=== PATIENT | male | born 1950 | race African-American/Black ===

== ENCOUNTER 2018-05-12 21:42 | Emergency (ER) | payer MEDICARE, MEDICAID ==
[~2018-05-12] VITALS: Ht 180.3 cm; Wt 104.0 kg
[~2018-05-12 21:42] MED LIST: AMLO5TAB4 PO; ASPI-1159 PO; ATOR20TA; CARV25TA47 PO; CLOP75TA33; FLUT1DIS3 IH; FURO-151 PO; HYDR-4135 PO; ISOS120T PO; KDUR20 PO; LEVITRA; LOSA100T14 PO; TERA5CAP4
[2018-05-13] MEDS ORDERED: CLONIDINE 0.3MG TABLET PO SCH (00:45)
[2018-05-13 01:31] LABS: CHLORIDE 100 mEq/L (98-107)
[2018-05-13 02:31] VITALS: BP 167/74
== END 2018-05-13 02:31 | disposition home or self-care (01) ==
LOC: ER 21:42
DX: I10 Essential (primary) hypertension (principal); T88.7XXA Unspecified adverse effect of drug or medicament, initial encounter; F11.23 Opioid dependence with withdrawal; T40.2X5A Adverse effect of other opioids, initial encounter; Y92.89 Other specified places as the place of occurrence of the external cause; E11.9 Type 2 diabetes mellitus without complications
CPT/HCPCS: 36415; 80048; 93005; 99284

== ENCOUNTER 2018-06-24 22:19 | Emergency (ER) | payer MEDICARE, MEDICAID ==
[~2018-06-24] VITALS: Ht 185.4 cm; Wt 109.0 kg
[2018-06-25] MEDS ORDERED: SODIUM CHLORIDE 0.9% 1,000 ML IV ONE (00:17)
[2018-06-25 00:33] LABS: BASOPHILS % 0.5 % (0.0-2.0); EOSINOPHILS % 0.9 % (0.0-5.0); HEMATOCRIT. 36.7 % (42.0-52.0); HEMOGLOBIN. 12.5 g/dL (14.0-18.0); LYMPHOCYTES % 35.7 % (20.0-50.0); MEAN CORPUSCULAR HEMOGLOBIN 29.4 pg (28.0-32.0); MEAN CORPUSCULAR VOLUME 86.4 fL (80.0-94.0); MEAN PLATELET VOLUME 8.5 fl (7.4-10.4); MONOCYTES % 8.3 % (2.0-8.0); NEUTROPHILS % 54.6 % (40.0-76.0); PLATELET 202 x1000/uL (130-400); RED BLOOD CELL COUNT 4.24 mill/uL (4.7-6.1)
[2018-06-25 00:36] LABS: CHLORIDE 101 mEq/L (98-107)
[2018-06-25 00:51] LABS: CLARITY URINE CLEAR (CLEAR); COLOR URINE YELLOW (YELLOW); KETONES URINE NEGATIVE (NEGATIVE); LEUKOCYTE ESTERASE URINE NEGATIVE (NEGATIVE); NITRITE URINE NEGATIVE (NEGATIVE); OCCULT BLOOD URINE NEGATIVE (NEGATIVE); PROTEIN URINE NEGATIVE (NEGATIVE); SPECIFIC GRAVITY URINE 1.011 (1.005-1.030); UROBILINOGEN URINE 0.2 E.U./dL (0.2-1.0)
[2018-06-25] MEDS ORDERED: HYDROCODONE/ACETAMINOPHEN 5/325MG TABLET PO ONE (01:45)
[2018-06-25] MEDS ORDERED: POTASSIUM CHLORIDE 20MEQ TABLET SR PO ONE (04:45)
[2018-06-25 05:00] VITALS: BP 167/72
== END 2018-06-25 06:36 | disposition home or self-care (01) ==
LOC: ER 22:19
DX: R42 Dizziness and giddiness (principal); E87.6 Hypokalemia; I11.0 Hypertensive heart disease with heart failure; I50.9 Heart failure, unspecified; Z79.82 Long term (current) use of aspirin; Z79.899 Other long term (current) drug therapy
CPT/HCPCS: 36415; 70450; 80053; 81003; 84484; 85025; 93005; 96360; 99284; J7030

== ENCOUNTER 2018-11-08 13:33 | Inpatient (IN) | payer MEDICARE, MEDICAID ==
[~2018-11-08] VITALS: Ht 193 cm; Wt 115.2 kg
[~2018-11-08 13:33] MED LIST changes: -ASPI-1159 PO; +ASPI-1393 PO; -LOSA100T14 PO; +LOSA100T32 PO
[2018-11-08] MEDS ORDERED: DOXYCYCLINE HYCLATE 100 MG/VIAL IV ONE (14:45)
[2018-11-08] MEDS ORDERED: SODIUM CHLORIDE 0.9% 1000ML BAG (SEPSIS BOLUS) IV ONE (14:45)
[2018-11-08 15:23] LABS: CHLORIDE 107 mEq/L (98-107); PROTHROMBIN TIME 10.7 sec (9.6-11.0)
[2018-11-08 15:25] LABS: BASOPHILS % 0.6 % (0.0-2.0); EOSINOPHILS % 2.5 % (0.0-5.0); HEMATOCRIT. 33.6 % (42.0-52.0); HEMOGLOBIN. 11.3 g/dL (14.0-18.0); LYMPHOCYTES % 25.8 % (20.0-50.0); MEAN CORPUSCULAR HEMOGLOBIN 29.5 pg (28.0-32.0); MEAN CORPUSCULAR VOLUME 87.8 fL (80.0-94.0); MEAN PLATELET VOLUME 9.5 fl (7.4-10.4); MONOCYTES % 8.3 % (2.0-8.0); NEUTROPHILS % 62.8 % (40.0-76.0); PLATELET 206 x1000/uL (130-400); RED BLOOD CELL COUNT 3.83 mill/uL (4.7-6.1); RED CELL DISTRIBUTION WIDTH 14.9 % (11.6-14.6)
[2018-11-08 15:27] LABS: ETHANOL BLOOD < 10 mg/dL
[2018-11-08] MEDS ORDERED: ALBUTEROL (0.083%) 2.5MG/3ML NEB HHN STA (17:23)
[2018-11-08] MEDS ORDERED: IPRATROPIUM BROMIDE (0.02%) 0.5MG/2.5ML NEB HHN STA (17:23)
[2018-11-08] MEDS ORDERED: METHYLPREDNISOLONE SOD SUCC 125 MG/2 ML VIAL IV STA (17:23)
[2018-11-08] MEDS ORDERED: DOXYCYCLINE 100MG in DEXTROSE 5% WATER 100ML IV NR (17:30)
[2018-11-08] MEDS ORDERED: CEFTRIAXONE 1 G PREMIX 50 ML IV NR (17:30)
[2018-11-08] MEDS ORDERED: HYDROCODONE/ACETAMINOPHEN 5/325MG TABLET PO ONE (17:45)
[2018-11-08] MEDS ORDERED: ONDANSETRON HCL 4MG/2ML INJ IV PRN (20:00)
[2018-11-08] MEDS ORDERED: ACETAMINOPHEN 325MG TABLET PO PRN (20:00)
[2018-11-08] MEDS ORDERED: MORPHINE SULFATE 2 MG/ML CPJ (NOT FOR IM USE) IV PRN (20:00)
[2018-11-08] MEDS ORDERED: DEXTROSE 50% WATER 50ML SYRINGE IV PRN (21:00)
[2018-11-08] MEDS: BLOOD SUGAR DIAGNOSTIC STRIP TEST SCH (21:46)
[2018-11-08] MEDS: INSULIN LISPRO 100 UNITS/ML SUBCUT SCH (22:07)
[2018-11-08] MEDS: HYDROCODONE/ACETAMINOPHEN 5/325MG TABLET PO PRN (23:32)
[2018-11-09] VITALS (8 sets, daily range): BP systolic 117–169; BP diastolic 54–93
[2018-11-09 00:26] LABS: CREATINE KINASE 107 IU/L (39-308)
[2018-11-09 00:27] LABS: CREATINE KINASE MB FRACTION 1.2 ng/mL (0.5-3.6)
[2018-11-09] MEDS: BLOOD SUGAR DIAGNOSTIC STRIP TEST SCH ×4 (06:36→20:53)
[2018-11-09 07:12] LABS: CREATINE KINASE 114 IU/L (39-308)
[2018-11-09 07:13] LABS: CREATINE KINASE MB FRACTION 1.1 ng/mL (0.5-3.6)
[2018-11-09] MEDS: FOLIC ACID 1MG TABLET PO SCH (08:44)
[2018-11-09] MEDS: ENOXAPARIN 40MG/0.4ML SYR SUBCUT SCH (08:45)
[2018-11-09] MEDS: THIAMINE HCL 100MG TABLET PO SCH (08:45)
[2018-11-09] MEDS: HYDROCODONE/ACETAMINOPHEN 5/325MG TABLET PO PRN ×2 (08:46→20:47)
[2018-11-09] MEDS: INSULIN LISPRO 100 UNITS/ML SUBCUT SCH ×4 (08:55→20:45)
[2018-11-09] MEDS ORDERED: ASPIRIN 81MG EC TABLET PO SCH (09:00)
[2018-11-09] MEDS: LORAZEPAM 2MG/ML CPJ IV PRN ×2 (10:38→22:03)
[2018-11-09] MEDS: LOSARTAN POTASSIUM 50 MG TABLET PO SCH (13:25)
[2018-11-09] MEDS ORDERED: METHYLPREDNISOLONE SOD SUCC 40 MG/ML VIAL IV SCH (15:45)
[2018-11-09] MEDS ORDERED: RACEPINEPHRINE 2.25% 0.5ML NEB VIAL HHN PRN (15:45)
[2018-11-09] MEDS: MONTELUKAST SODIUM 10MG TABLET PO SCH (17:48)
[2018-11-09 17:57] LABS: CLARITY URINE CLEAR (CLEAR); COLOR URINE YELLOW (YELLOW); KETONES URINE TRACE (NEGATIVE); LEUKOCYTE ESTERASE URINE NEGATIVE (NEGATIVE); NITRITE URINE NEGATIVE (NEGATIVE); OCCULT BLOOD URINE NEGATIVE (NEGATIVE); PROTEIN URINE TRACE (NEGATIVE); SPECIFIC GRAVITY URINE 1.025 (1.005-1.030)
[2018-11-09 18:21] LABS: *AMPHETAMINES SCREEN URINE NEGATIVE (NEGATIVE); *BARBITURATES SCREEN URINE NEGATIVE (NEGATIVE); *BENZODIAZEPINES SCREEN URINE PRESUMTIVE POSITIVE (NEGATIVE); *COCAINE SCREEN URINE NEGATIVE (NEGATIVE); CANNABINOID URINE SCREEN NEGATIVE (NEGATIVE); PHENCYCLIDINE URINE SCREEN NEGATIVE (NEGATIVE)
[2018-11-09 18:22] LABS: METHADONE URINE SCREEN NEGATIVE (NEGATIVE); OPIATES URINE SCREEN PRESUMTIVE POSITIVE (NEGATIVE)
[2018-11-09] MEDS: GUAIFENESIN 600MG ER TABLET PO SCH (20:47)
[2018-11-09] MEDS: LORATADINE 10MG TABLET PO SCH (20:47)
[2018-11-09] MEDS: ATORVASTATIN CALCIUM 20MG TABLET PO SCH (20:48)
[2018-11-09] MEDS: FAMOTIDINE 20MG/2ML VIAL IV SCH (20:48)
[2018-11-09] MEDS: IPRATROPIUM/ALBUTEROL 0.5-3(2.5)MG/3ML NEB NEB PRN (20:51)
[2018-11-09] MEDS ORDERED: AMLODIPINE 5MG TABLET PO SCH (21:00)
[2018-11-09] MEDS ORDERED: AMOXICILLIN/POTASSIUM CLAVULANATE 875/125MG TAB PO SCH (21:00)
[2018-11-09] MEDS: METHYLPREDNISOLONE SOD SUCC 125 MG/2 ML VIAL IV SCH (22:03)
[2018-11-09] MEDS: FLUTICASONE PROPIONATE 50MCG/SPRAY BOTTLE BOTHNSTRLS SCH (22:03)
[2018-11-10] VITALS (11 sets, daily range): BP systolic 127–202; BP diastolic 78–94
[2018-11-10] MEDS: CEFTRIAXONE 1 G PREMIX 50 ML IV SCH ×2 (00:26→22:34)
[2018-11-10] MEDS: AZITHROMYCIN 500 MG in DEXT 5% WATER 250 ML IV SCH ×2 (01:11→22:50)
[2018-11-10] MEDS: HYDROCODONE/ACETAMINOPHEN 5/325MG TABLET PO PRN ×3 (02:09→21:24)
[2018-11-10] MEDS: LORAZEPAM 2MG/ML CPJ IV PRN ×3 (02:23→23:37)
[2018-11-10] MEDS: METHYLPREDNISOLONE SOD SUCC 125 MG/2 ML VIAL IV SCH ×3 (05:45→21:26)
[2018-11-10 06:48] LABS: BASOPHILS % 0.1 % (0.0-2.0); HEMATOCRIT. 37.6 % (42.0-52.0); HEMOGLOBIN. 12.6 g/dL (14.0-18.0); LYMPHOCYTES % 11.2 % (20.0-50.0); MEAN CORPUSCULAR HEMOGLOBIN 29.6 pg (28.0-32.0); MEAN CORPUSCULAR VOLUME 87.8 fL (80.0-94.0); MEAN PLATELET VOLUME 9.8 fl (7.4-10.4); MONOCYTES % 2.6 % (2.0-8.0); NEUTROPHILS % 86.1 % (40.0-76.0); PLATELET 258 x1000/uL (130-400); RED BLOOD CELL COUNT 4.28 mill/uL (4.7-6.1); RED CELL DISTRIBUTION WIDTH 14.7 % (11.6-14.6)
[2018-11-10] MEDS: BLOOD SUGAR DIAGNOSTIC STRIP TEST SCH ×4 (06:52→21:26)
[2018-11-10 06:58] LABS: CHLORIDE 108 mEq/L (98-107)
[2018-11-10 07:09] LABS: LDL CHOLESTEROL 129 mg/dL (5-100)
[2018-11-10 07:10] LABS: PHOSPHORUS 2.2 mg/dL (2.5-4.9)
[2018-11-10 07:11] LABS: HDL CHOLESTEROL 50 mg/dL (40-59)
[2018-11-10] MEDS: THIAMINE HCL 100MG TABLET PO SCH (08:52)
[2018-11-10] MEDS: GUAIFENESIN 600MG ER TABLET PO SCH ×2 (08:52→21:25)
[2018-11-10] MEDS: FAMOTIDINE 20MG/2ML VIAL IV SCH ×2 (08:52→21:21)
[2018-11-10] MEDS: ENOXAPARIN 40MG/0.4ML SYR SUBCUT SCH (08:52)
[2018-11-10] MEDS: FOLIC ACID 1MG TABLET PO SCH (08:52)
[2018-11-10] MEDS: INSULIN LISPRO 100 UNITS/ML SUBCUT SCH ×4 (08:54→21:21)
[2018-11-10] MEDS: LOSARTAN POTASSIUM 50 MG TABLET PO SCH (09:00)
[2018-11-10] MEDS: FLUTICASONE PROPIONATE 50MCG/SPRAY BOTTLE BOTHNSTRLS SCH ×2 (09:00→21:00)
[2018-11-10 09:25] LABS: T4 FREE 1.12 ng/dL (0.76-1.46)
[2018-11-10] MEDS: HYDRALAZINE HCL 25MG TABLET PO SCH ×2 (14:43→21:25)
[2018-11-10] MEDS: MONTELUKAST SODIUM 10MG TABLET PO SCH (17:54)
[2018-11-10] MEDS: AMLODIPINE 5MG TABLET PO SCH (21:25)
[2018-11-10] MEDS: ATORVASTATIN CALCIUM 20MG TABLET PO SCH (21:26)
[2018-11-10] MEDS: LORATADINE 10MG TABLET PO SCH (21:27)
[2018-11-11 00:47] VITALS: BP 201/91
[2018-11-11 04:00] VITALS: BP 162/65
[2018-11-11] MEDS ORDERED: CLONIDINE 0.1MG TABLET PO PRN (04:15)
[2018-11-11] MEDS: METHYLPREDNISOLONE SOD SUCC 125 MG/2 ML VIAL IV SCH ×2 (05:25→13:21)
[2018-11-11] MEDS: HYDRALAZINE HCL 50MG TABLET PO SCH ×3 (05:27→21:19)
[2018-11-11] MEDS: HYDROCODONE/ACETAMINOPHEN 5/325MG TABLET PO PRN ×3 (05:28→20:36)
[2018-11-11] MEDS: BLOOD SUGAR DIAGNOSTIC STRIP TEST SCH ×4 (07:02→21:00)
[2018-11-11] MEDS: INSULIN LISPRO 100 UNITS/ML SUBCUT SCH ×4 (07:50→22:24)
[2018-11-11] MEDS: IPRATROPIUM/ALBUTEROL 0.5-3(2.5)MG/3ML NEB NEB PRN (08:56)
[2018-11-11] MEDS: FLUTICASONE PROPIONATE 50MCG/SPRAY BOTTLE BOTHNSTRLS SCH ×2 (09:01→21:13)
[2018-11-11] MEDS: GUAIFENESIN 600MG ER TABLET PO SCH ×2 (09:01→20:37)
[2018-11-11] MEDS: FAMOTIDINE 20MG/2ML VIAL IV SCH ×2 (09:01→20:38)
[2018-11-11] MEDS: FOLIC ACID 1MG TABLET PO SCH (09:01)
[2018-11-11] MEDS: AMLODIPINE 5MG TABLET PO SCH (09:02)
[2018-11-11] MEDS: LOSARTAN POTASSIUM 50 MG TABLET PO SCH (09:02)
[2018-11-11] MEDS: THIAMINE HCL 100MG TABLET PO SCH (09:02)
[2018-11-11] MEDS: ENOXAPARIN 40MG/0.4ML SYR SUBCUT SCH (09:05)
[2018-11-11] MEDS: LORAZEPAM 2MG/ML CPJ IV PRN ×2 (10:39→22:24)
[2018-11-11] MEDS: MIDODRINE HCL 2.5MG TABLET PO SCH ×2 (14:00→21:19)
[2018-11-11 16:00] VITALS: BP_SYST 138; BP_SYST 158; BP_SYST 180; BP_DIAS 84; BP_DIAS 90; BP_DIAS 91
[2018-11-11] MEDS: METHYLPREDNISOLONE SOD SUCC 40 MG/ML VIAL IV SCH (17:30)
[2018-11-11] MEDS: MONTELUKAST SODIUM 10MG TABLET PO SCH (17:30)
[2018-11-11 20:00] VITALS: BP_SYST 149; BP_SYST 175; BP_SYST 194; BP_DIAS 93; BP_DIAS 94; BP_DIAS 97
[2018-11-11] MEDS: ATORVASTATIN CALCIUM 20MG TABLET PO SCH (20:37)
[2018-11-11] MEDS: LORATADINE 10MG TABLET PO SCH (20:38)
[2018-11-11] MEDS: ENOXAPARIN 30MG/0.3ML SYR SUBCUT SCH (20:40)
[2018-11-11] MEDS: AZITHROMYCIN 500 MG in DEXT 5% WATER 250 ML IV SCH (22:25)
[2018-11-11] MEDS: CEFTRIAXONE 1 G PREMIX 50 ML IV SCH (22:25)
[2018-11-12] VITALS: BP 157/87
[2018-11-12 04:00] VITALS: BP 163/75
[2018-11-12] MEDS: BLOOD SUGAR DIAGNOSTIC STRIP TEST SCH ×4 (06:26→21:56)
[2018-11-12] MEDS: MIDODRINE HCL 2.5MG TABLET PO SCH ×3 (06:31→21:42)
[2018-11-12] MEDS: HYDRALAZINE HCL 50MG TABLET PO SCH ×3 (06:31→21:42)
[2018-11-12 08:00] VITALS: BP_SYST 126; BP_SYST 135; BP_SYST 181; BP_DIAS 83; BP_DIAS 87; BP_DIAS 93
[2018-11-12 08:16] LABS: HEMATOCRIT. 39.2 % (42.0-52.0); HEMOGLOBIN. 13.6 g/dL (14.0-18.0); MEAN CORPUSCULAR HEMOGLOBIN 30.1 pg (28.0-32.0); MEAN CORPUSCULAR VOLUME 86.7 fL (80.0-94.0); MEAN PLATELET VOLUME 9.8 fl (7.4-10.4); PLATELET 301 x1000/uL (130-400); RED BLOOD CELL COUNT 4.52 mill/uL (4.7-6.1); RED CELL DISTRIBUTION WIDTH 14.6 % (11.6-14.6)
[2018-11-12 08:49] LABS: CHLORIDE 106 mEq/L (98-107)
[2018-11-12] MEDS: FLUTICASONE PROPIONATE 50MCG/SPRAY BOTTLE BOTHNSTRLS SCH (09:00)
[2018-11-12] MEDS ORDERED: NIFEDIPINE XL 60MG TAB PO SCH (09:00)
[2018-11-12] MEDS: FAMOTIDINE 20MG/2ML VIAL IV SCH ×2 (09:33→21:43)
[2018-11-12] MEDS: THIAMINE HCL 100MG TABLET PO SCH (09:34)
[2018-11-12] MEDS: GUAIFENESIN 600MG ER TABLET PO SCH ×2 (09:34→21:42)
[2018-11-12] MEDS: FOLIC ACID 1MG TABLET PO SCH (09:34)
[2018-11-12] MEDS: METHYLPREDNISOLONE SOD SUCC 40 MG/ML VIAL IV SCH (09:34)
[2018-11-12] MEDS: ENOXAPARIN 30MG/0.3ML SYR SUBCUT SCH ×2 (09:35→21:49)
[2018-11-12] MEDS: LOSARTAN POTASSIUM 50 MG TABLET PO SCH ×2 (09:35→17:27)
[2018-11-12] MEDS: HYDROCODONE/ACETAMINOPHEN 5/325MG TABLET PO PRN ×2 (09:36→21:43)
[2018-11-12] MEDS: INSULIN LISPRO 100 UNITS/ML SUBCUT SCH ×4 (09:45→22:36)
[2018-11-12] MEDS: LORAZEPAM 2MG/ML CPJ IV PRN (11:45)
[2018-11-12 12:00] VITALS: BP 160/90
[2018-11-12 16:00] VITALS: BP 161/84
[2018-11-12] MEDS: MONTELUKAST SODIUM 10MG TABLET PO SCH (17:27)
[2018-11-12 20:00] VITALS: BP_SYST 129; BP_SYST 145; BP_SYST 156; BP_DIAS 86; BP_DIAS 91; BP_DIAS 94
[2018-11-12 21:12] LABS: PLATELET ESTIMATE NORMAL
[2018-11-12] MEDS: LORATADINE 10MG TABLET PO SCH (21:43)
[2018-11-12] MEDS: ATORVASTATIN CALCIUM 20MG TABLET PO SCH (21:43)
[2018-11-12] MEDS: NIFEDIPINE XL 60MG TAB PO SCH (21:45)
[2018-11-12] MEDS: CEFTRIAXONE 1 G PREMIX 50 ML IV SCH (22:38)
[2018-11-12] MEDS: AZITHROMYCIN 500 MG in DEXT 5% WATER 250 ML IV SCH (22:38)
[2018-11-13] VITALS (7 sets, daily range): BP systolic 112–154; BP diastolic 68–90
[2018-11-13] MEDS: MIDODRINE HCL 2.5MG TABLET PO SCH (06:11)
[2018-11-13] MEDS: HYDRALAZINE HCL 50MG TABLET PO SCH ×2 (06:12→13:59)
[2018-11-13 07:18] LABS: HEMATOCRIT. 40.3 % (42.0-52.0); HEMOGLOBIN. 13.8 g/dL (14.0-18.0); MEAN CORPUSCULAR HEMOGLOBIN 29.6 pg (28.0-32.0); MEAN CORPUSCULAR VOLUME 86.7 fL (80.0-94.0); PLATELET 301 x1000/uL (130-400); RED BLOOD CELL COUNT 4.65 mill/uL (4.7-6.1); RED CELL DISTRIBUTION WIDTH 14.8 % (11.6-14.6)
[2018-11-13 07:27] LABS: CHLORIDE 108 mEq/L (98-107)
[2018-11-13] MEDS: BLOOD SUGAR DIAGNOSTIC STRIP TEST SCH ×4 (08:19→20:56)
[2018-11-13] MEDS: INSULIN LISPRO 100 UNITS/ML SUBCUT SCH ×4 (08:20→20:56)
[2018-11-13] MEDS: FOLIC ACID 1MG TABLET PO SCH (08:21)
[2018-11-13] MEDS: LOSARTAN POTASSIUM 50 MG TABLET PO SCH ×2 (08:21→17:06)
[2018-11-13] MEDS: PREDNISONE 20MG TABLET PO SCH (08:21)
[2018-11-13] MEDS: GUAIFENESIN 600MG ER TABLET PO SCH ×2 (08:21→20:52)
[2018-11-13] MEDS: ENOXAPARIN 30MG/0.3ML SYR SUBCUT SCH ×2 (08:22→20:51)
[2018-11-13] MEDS: NIFEDIPINE XL 60MG TAB PO SCH ×2 (08:22→20:52)
[2018-11-13] MEDS: THIAMINE HCL 100MG TABLET PO SCH (08:22)
[2018-11-13] MEDS: FAMOTIDINE 20MG/2ML VIAL IV SCH ×2 (08:31→20:51)
[2018-11-13] MEDS: HYDROCODONE/ACETAMINOPHEN 5/325MG TABLET PO PRN ×2 (09:19→17:07)
[2018-11-13] MEDS ORDERED: POTASSIUM CHLORIDE 20MEQ TABLET SR PO NR (11:30)
[2018-11-13] MEDS: MIDODRINE HCL 5MG TABLET PO SCH (13:58)
[2018-11-13] MEDS: MONTELUKAST SODIUM 10MG TABLET PO SCH (17:06)
[2018-11-13] MEDS: LORATADINE 10MG TABLET PO SCH (20:51)
[2018-11-13] MEDS: ATORVASTATIN CALCIUM 20MG TABLET PO SCH (20:51)
[2018-11-13] MEDS: AZITHROMYCIN 500 MG TABLET PO SCH (20:52)
[2018-11-14] VITALS: BP 133/65
[2018-11-14] MEDS: HYDRALAZINE HCL 50MG TABLET PO SCH ×4 (00:43→22:07)
[2018-11-14] MEDS: CEFTRIAXONE 1 G PREMIX 50 ML IV SCH ×2 (00:43→22:13)
[2018-11-14] MEDS: MIDODRINE HCL 5MG TABLET PO SCH ×4 (00:43→21:04)
[2018-11-14 04:00] VITALS: BP 131/85
[2018-11-14 06:43] LABS: BASOPHILS % 0.2 % (0.0-2.0); EOSINOPHILS % 0.9 % (0.0-5.0); HEMATOCRIT. 40.6 % (42.0-52.0); HEMOGLOBIN. 13.9 g/dL (14.0-18.0); LYMPHOCYTES % 26.1 % (20.0-50.0); MEAN CORPUSCULAR HEMOGLOBIN 29.7 pg (28.0-32.0); MEAN CORPUSCULAR VOLUME 87.1 fL (80.0-94.0); MONOCYTES % 9.2 % (2.0-8.0); NEUTROPHILS % 63.6 % (40.0-76.0); PLATELET 304 x1000/uL (130-400); RED BLOOD CELL COUNT 4.67 mill/uL (4.7-6.1); RED CELL DISTRIBUTION WIDTH 14.8 % (11.6-14.6)
[2018-11-14 06:46] LABS: PLATELET ESTIMATE NORMAL
[2018-11-14 06:51] LABS: CHLORIDE 108 mEq/L (98-107)
[2018-11-14] MEDS: BLOOD SUGAR DIAGNOSTIC STRIP TEST SCH ×4 (07:20→21:06)
[2018-11-14] MEDS: INSULIN LISPRO 100 UNITS/ML SUBCUT SCH ×4 (07:50→21:02)
[2018-11-14 08:00] VITALS: BP_SYST 107; BP_SYST 116; BP_SYST 126; BP_SYST 135; BP_DIAS 67; BP_DIAS 71; BP_DIAS 79; BP_DIAS 94
[2018-11-14] MEDS: THIAMINE HCL 100MG TABLET PO SCH (08:27)
[2018-11-14] MEDS: PREDNISONE 20MG TABLET PO SCH (08:28)
[2018-11-14] MEDS: NIFEDIPINE XL 60MG TAB PO SCH ×2 (08:28→21:06)
[2018-11-14] MEDS: HYDROCODONE/ACETAMINOPHEN 5/325MG TABLET PO PRN ×2 (08:28→21:04)
[2018-11-14] MEDS: GUAIFENESIN 600MG ER TABLET PO SCH ×2 (08:29→21:04)
[2018-11-14] MEDS: ENOXAPARIN 30MG/0.3ML SYR SUBCUT SCH ×2 (08:29→21:06)
[2018-11-14] MEDS: LOSARTAN POTASSIUM 50 MG TABLET PO SCH ×2 (08:29→17:00)
[2018-11-14] MEDS: FOLIC ACID 1MG TABLET PO SCH (08:29)
[2018-11-14] MEDS: FAMOTIDINE 20MG/2ML VIAL IV SCH ×2 (08:29→21:04)
[2018-11-14 12:00] VITALS: BP 159/83
[2018-11-14] MEDS: VALACYCLOVIR HCL 500MG TABLET PO SCH (14:54)
[2018-11-14] MEDS ORDERED: VALA500T PO (14:58)
[2018-11-14 16:00] VITALS: BP 105/77
[2018-11-14] MEDS: MONTELUKAST SODIUM 10MG TABLET PO SCH (17:28)
[2018-11-14 20:00] VITALS: BP_SYST 131; BP_SYST 135; BP_SYST 156; BP_DIAS 67; BP_DIAS 69; BP_DIAS 89
[2018-11-14] MEDS: ATORVASTATIN CALCIUM 20MG TABLET PO SCH (21:04)
[2018-11-14] MEDS: LORATADINE 10MG TABLET PO SCH (21:04)
[2018-11-14] MEDS: AZITHROMYCIN 500 MG TABLET PO SCH (21:06)
[2018-11-14] MEDS: LORAZEPAM 2MG/ML CPJ IV PRN (22:08)
[2018-11-15] VITALS: BP 136/82
[2018-11-15] MEDS: ACETYLCYSTEINE 100MG/ML 10% VIAL 4ML INH SCH ×2 (00:28→15:49)
[2018-11-15] MEDS: HYDROCODONE/ACETAMINOPHEN 5/325MG TABLET PO PRN ×3 (02:43→21:27)
[2018-11-15] MEDS: LORAZEPAM 2MG/ML CPJ IV PRN (03:19)
[2018-11-15 04:00] VITALS: BP 150/81
[2018-11-15] MEDS: HYDRALAZINE HCL 50MG TABLET PO SCH ×3 (05:30→21:21)
[2018-11-15] MEDS: MIDODRINE HCL 5MG TABLET PO SCH ×3 (05:30→21:21)
[2018-11-15] MEDS: INSULIN LISPRO 100 UNITS/ML SUBCUT SCH ×4 (07:50→21:17)
[2018-11-15 08:00] VITALS: BP_SYST 107; BP_SYST 115; BP_SYST 154; BP_DIAS 67; BP_DIAS 69; BP_DIAS 74
[2018-11-15] MEDS: BLOOD SUGAR DIAGNOSTIC STRIP TEST SCH ×4 (08:07→21:23)
[2018-11-15] MEDS: ENOXAPARIN 30MG/0.3ML SYR SUBCUT SCH ×2 (09:05→21:23)
[2018-11-15] MEDS: FAMOTIDINE 20MG/2ML VIAL IV SCH ×2 (09:05→21:18)
[2018-11-15] MEDS: FOLIC ACID 1MG TABLET PO SCH (09:06)
[2018-11-15] MEDS: NIFEDIPINE XL 60MG TAB PO SCH ×2 (09:06→21:20)
[2018-11-15] MEDS: PREDNISONE 20MG TABLET PO SCH (09:06)
[2018-11-15] MEDS: GUAIFENESIN 600MG ER TABLET PO SCH ×2 (09:06→21:20)
[2018-11-15] MEDS: THIAMINE HCL 100MG TABLET PO SCH (09:06)
[2018-11-15] MEDS: LOSARTAN POTASSIUM 50 MG TABLET PO SCH ×2 (09:07→17:46)
[2018-11-15] MEDS: VALACYCLOVIR HCL 500MG TABLET PO SCH (09:33)
[2018-11-15 12:00] VITALS: BP 125/63
[2018-11-15] MEDS: DOCUSATE SODIUM 100MG CAPSULE PO SCH ×2 (13:05→17:46)
[2018-11-15 16:00] VITALS: BP 114/67
[2018-11-15] MEDS: MONTELUKAST SODIUM 10MG TABLET PO SCH (17:46)
[2018-11-15 20:00] VITALS: BP_SYST 116; BP_SYST 131; BP_SYST 134; BP_DIAS 73; BP_DIAS 74; BP_DIAS 83
[2018-11-15] MEDS: ATORVASTATIN CALCIUM 20MG TABLET PO SCH (21:20)
[2018-11-15] MEDS: MECLIZINE 12.5MG TABLET PO SCH (21:20)
[2018-11-15] MEDS: AZITHROMYCIN 500 MG TABLET PO SCH (21:22)
[2018-11-15] MEDS: LORATADINE 10MG TABLET PO SCH (21:22)
[2018-11-15] MEDS: IPRATROPIUM/ALBUTEROL 0.5-3(2.5)MG/3ML NEB HHN SCH (21:41)
[2018-11-15] MEDS: CEFTRIAXONE 1 G PREMIX 50 ML IV SCH (22:24)
[2018-11-16] VITALS (8 sets, daily range): BP systolic 103–145; BP diastolic 66–82
[2018-11-16] MEDS: HYDROCODONE/ACETAMINOPHEN 5/325MG TABLET PO PRN ×3 (02:12→21:04)
[2018-11-16] MEDS: IPRATROPIUM/ALBUTEROL 0.5-3(2.5)MG/3ML NEB HHN SCH ×6 (04:00→20:26)
[2018-11-16] MEDS: MIDODRINE HCL 5MG TABLET PO SCH ×3 (05:45→21:17)
[2018-11-16] MEDS: MECLIZINE 12.5MG TABLET PO SCH ×3 (05:46→21:04)
[2018-11-16] MEDS: HYDRALAZINE HCL 50MG TABLET PO SCH ×3 (05:46→21:03)
[2018-11-16 07:17] LABS: HEMATOCRIT. 37.9 % (42.0-52.0); HEMOGLOBIN. 12.8 g/dL (14.0-18.0); MEAN CORPUSCULAR HEMOGLOBIN 29.5 pg (28.0-32.0); MEAN CORPUSCULAR VOLUME 87.6 fL (80.0-94.0); MEAN PLATELET VOLUME 9.4 fl (7.4-10.4); PLATELET 298 x1000/uL (130-400); RED BLOOD CELL COUNT 4.33 mill/uL (4.7-6.1)
[2018-11-16] MEDS: BLOOD SUGAR DIAGNOSTIC STRIP TEST SCH ×4 (07:22→21:06)
[2018-11-16 07:56] LABS: CHLORIDE 107 mEq/L (98-107)
[2018-11-16] MEDS: INSULIN LISPRO 100 UNITS/ML SUBCUT SCH ×4 (08:10→21:05)
[2018-11-16] MEDS: ACETYLCYSTEINE 100MG/ML 10% VIAL 4ML INH SCH ×4 (08:11→20:25)
[2018-11-16] MEDS: VALACYCLOVIR HCL 500MG TABLET PO SCH (09:13)
[2018-11-16] MEDS: NIFEDIPINE XL 60MG TAB PO SCH ×2 (09:13→21:03)
[2018-11-16] MEDS: LOSARTAN POTASSIUM 50 MG TABLET PO SCH ×2 (09:13→17:14)
[2018-11-16] MEDS: ENOXAPARIN 30MG/0.3ML SYR SUBCUT SCH ×2 (09:13→21:02)
[2018-11-16] MEDS: FAMOTIDINE 20MG/2ML VIAL IV SCH ×2 (09:14→21:17)
[2018-11-16] MEDS: GUAIFENESIN 600MG ER TABLET PO SCH ×2 (09:14→21:03)
[2018-11-16] MEDS: PREDNISONE 20MG TABLET PO SCH (09:14)
[2018-11-16 10:41] LABS: PLATELET ESTIMATE NORMAL
[2018-11-16] MEDS ORDERED: BISACODYL 5MG TABLET PO PRN (16:45)
[2018-11-16] MEDS: MONTELUKAST SODIUM 10MG TABLET PO SCH (17:14)
[2018-11-16] MEDS: LACTULOSE 20G/30ML UDC PO SCH ×2 (17:53→23:57)
[2018-11-16] MEDS: LORATADINE 10MG TABLET PO SCH (21:03)
[2018-11-16] MEDS: ATORVASTATIN CALCIUM 20MG TABLET PO SCH (21:04)
[2018-11-16] MEDS: LORAZEPAM 2MG/ML CPJ IV PRN (23:03)
[2018-11-17] VITALS (7 sets, daily range): BP systolic 111–165; BP diastolic 73–88
[2018-11-17] MEDS: IPRATROPIUM/ALBUTEROL 0.5-3(2.5)MG/3ML NEB HHN SCH ×6 (04:00→20:54)
[2018-11-17] MEDS: HYDRALAZINE HCL 50MG TABLET PO SCH ×3 (05:20→22:56)
[2018-11-17] MEDS: MECLIZINE 12.5MG TABLET PO SCH ×3 (05:20→22:55)
[2018-11-17] MEDS: MIDODRINE HCL 5MG TABLET PO SCH ×3 (05:20→22:56)
[2018-11-17] MEDS: LACTULOSE 20G/30ML UDC PO SCH ×3 (06:00→17:26)
[2018-11-17] MEDS: BLOOD SUGAR DIAGNOSTIC STRIP TEST SCH ×4 (06:54→21:00)
[2018-11-17] MEDS: INSULIN LISPRO 100 UNITS/ML SUBCUT SCH ×4 (07:50→22:54)
[2018-11-17] MEDS: GUAIFENESIN 600MG ER TABLET PO SCH ×2 (09:38→22:54)
[2018-11-17] MEDS: FAMOTIDINE 20MG/2ML VIAL IV SCH ×2 (09:38→22:55)
[2018-11-17] MEDS: PREDNISONE 20MG TABLET PO SCH (09:39)
[2018-11-17] MEDS: NIFEDIPINE XL 60MG TAB PO SCH ×2 (09:39→22:55)
[2018-11-17] MEDS: VALACYCLOVIR HCL 500MG TABLET PO SCH (09:39)
[2018-11-17] MEDS: LOSARTAN POTASSIUM 50 MG TABLET PO SCH ×2 (09:39→17:26)
[2018-11-17] MEDS: ENOXAPARIN 30MG/0.3ML SYR SUBCUT SCH ×2 (09:40→22:55)
[2018-11-17] MEDS: HYDROCODONE/ACETAMINOPHEN 5/325MG TABLET PO PRN ×2 (09:46→22:56)
[2018-11-17] MEDS: LORAZEPAM 2MG/ML CPJ IV PRN (12:04)
[2018-11-17] MEDS: MONTELUKAST SODIUM 10MG TABLET PO SCH (17:26)
[2018-11-17] MEDS: ATORVASTATIN CALCIUM 20MG TABLET PO SCH (22:54)
[2018-11-17] MEDS: LORATADINE 10MG TABLET PO SCH (22:55)
[2018-11-18] VITALS (8 sets, daily range): BP systolic 91–163; BP diastolic 67–92
[2018-11-18] MEDS: LORAZEPAM 2MG/ML CPJ IV PRN ×3 (00:08→22:32)
[2018-11-18] MEDS: IPRATROPIUM/ALBUTEROL 0.5-3(2.5)MG/3ML NEB HHN SCH ×6 (00:30→20:35)
[2018-11-18] MEDS: MECLIZINE 12.5MG TABLET PO SCH ×3 (05:12→21:03)
[2018-11-18] MEDS: MIDODRINE HCL 5MG TABLET PO SCH ×3 (05:12→21:04)
[2018-11-18] MEDS: LACTULOSE 20G/30ML UDC PO SCH ×4 (05:12→17:55)
[2018-11-18] MEDS: HYDRALAZINE HCL 50MG TABLET PO SCH ×3 (05:12→21:03)
[2018-11-18] MEDS: BLOOD SUGAR DIAGNOSTIC STRIP TEST SCH ×4 (06:43→21:17)
[2018-11-18] MEDS: INSULIN LISPRO 100 UNITS/ML SUBCUT SCH ×4 (08:04→21:06)
[2018-11-18] MEDS: LOSARTAN POTASSIUM 50 MG TABLET PO SCH ×2 (09:16→17:55)
[2018-11-18] MEDS: PREDNISONE 20MG TABLET PO SCH (09:16)
[2018-11-18] MEDS: GUAIFENESIN 600MG ER TABLET PO SCH ×2 (09:16→21:03)
[2018-11-18] MEDS: VALACYCLOVIR HCL 500MG TABLET PO SCH (09:16)
[2018-11-18] MEDS: FAMOTIDINE 20MG/2ML VIAL IV SCH ×2 (09:16→21:02)
[2018-11-18] MEDS: NIFEDIPINE XL 60MG TAB PO SCH ×2 (09:16→21:04)
[2018-11-18] MEDS: ENOXAPARIN 30MG/0.3ML SYR SUBCUT SCH ×2 (09:23→21:02)
[2018-11-18] MEDS: HYDROCODONE/ACETAMINOPHEN 5/325MG TABLET PO PRN ×2 (09:25→21:04)
[2018-11-18] MEDS: FLUDROCORTISONE ACETATE 0.1MG TABLET PO SCH (13:51)
[2018-11-18] MEDS: MONTELUKAST SODIUM 10MG TABLET PO SCH (17:55)
[2018-11-18] MEDS: LORATADINE 10MG TABLET PO SCH (21:02)
[2018-11-18] MEDS: ATORVASTATIN CALCIUM 20MG TABLET PO SCH (21:03)
[2018-11-19] VITALS: BP 142/80
[2018-11-19 04:00] VITALS: BP 130/70
[2018-11-19] MEDS: MIDODRINE HCL 5MG TABLET PO SCH ×2 (05:12→13:45)
[2018-11-19] MEDS: HYDRALAZINE HCL 50MG TABLET PO SCH ×2 (05:12→13:45)
[2018-11-19] MEDS: MECLIZINE 12.5MG TABLET PO SCH ×2 (05:12→13:44)
[2018-11-19] MEDS: LACTULOSE 20G/30ML UDC PO SCH ×3 (05:14→11:16)
[2018-11-19] MEDS: INSULIN LISPRO 100 UNITS/ML SUBCUT SCH ×2 (07:50→12:50)
[2018-11-19 08:00] VITALS: BP 142/71
[2018-11-19] MEDS: IPRATROPIUM/ALBUTEROL 0.5-3(2.5)MG/3ML NEB HHN SCH ×3 (08:05→15:38)
[2018-11-19] MEDS: BLOOD SUGAR DIAGNOSTIC STRIP TEST SCH ×2 (08:06→12:20)
[2018-11-19] MEDS: VALACYCLOVIR HCL 500MG TABLET PO SCH (09:20)
[2018-11-19] MEDS: FAMOTIDINE 20MG/2ML VIAL IV SCH (09:20)
[2018-11-19] MEDS: GUAIFENESIN 600MG ER TABLET PO SCH (09:20)
[2018-11-19] MEDS: NIFEDIPINE XL 60MG TAB PO SCH (09:20)
[2018-11-19] MEDS: ENOXAPARIN 30MG/0.3ML SYR SUBCUT SCH (09:21)
[2018-11-19] MEDS: LOSARTAN POTASSIUM 50 MG TABLET PO SCH (09:25)
[2018-11-19] MEDS: FLUDROCORTISONE ACETATE 0.1MG TABLET PO SCH (09:25)
[2018-11-19] MEDS ORDERED: HYDROCODONE/ACETAMINOPHEN 5/325MG TABLET PO PRN (10:45)
[2018-11-19] MEDS ORDERED: LORAZEPAM 2MG/ML CPJ IV PRN (10:45)
[2018-11-19 12:00] VITALS: BP 136/79
[2018-11-19 15:38] VITALS: BP 136/79
== END 2018-11-19 16:21 | disposition home or self-care (01) | DRG 190 ==
LOC: ER 13:33 → 6WST 17:26 → ENRESERV 18:21
PROVIDERS: ADMIT Internal Medicine Nephrology; ATTEND Internal Medicine Nephrology
DX: J47.0 Bronchiectasis with acute lower respiratory infection (principal); J96.00 Acute respiratory failure, unspecified whether with hypoxia or hypercapnia; I42.9 Cardiomyopathy, unspecified; I50.32 Chronic diastolic (congestive) heart failure; J20.9 Acute bronchitis, unspecified; I95.1 Orthostatic hypotension; J00 Acute nasopharyngitis [common cold]; J43.9 Emphysema, unspecified; M54.30 Sciatica, unspecified side; M81.0 Age-related osteoporosis without current pathological fracture; Z82.49 Family history of ischemic heart disease and other diseases of the circulatory system; B00.9 Herpesviral infection, unspecified; E11.51 Type 2 diabetes mellitus with diabetic peripheral angiopathy without gangrene; I11.0 Hypertensive heart disease with heart failure; E78.00 Pure hypercholesterolemia, unspecified; E78.5 Hyperlipidemia, unspecified; I25.10 Atherosclerotic heart disease of native coronary artery without angina pectoris; E66.01 Morbid (severe) obesity due to excess calories; M17.12 Unilateral primary osteoarthritis, left knee; K59.00 Constipation, unspecified; N40.0 Benign prostatic hyperplasia without lower urinary tract symptoms; Z85.46 Personal history of malignant neoplasm of prostate; Z92.3 Personal history of irradiation; Z95.810 Presence of automatic (implantable) cardiac defibrillator
CPT/HCPCS: 36415; 71045; 71250; 80048; 80061; 80305; 80320; 81003; 82550; 82553; 82962; 83036; 83605; 83735; 84100; 84145; 84439; 84443; 84481; 84484; 87070; 87804; 93005; 93306; 93880; 94640; 97162; 97164; 97166; 97535; 99285; C1893; J0456; J0696; J1650; J1815; J2060; J2405; J2920; J2930; J3490; J7030; J7040; J7060; J7512; J7608; J7611; J7620; J8597; G0480

== ENCOUNTER 2019-10-22 12:33 | Emergency (ER) | payer MEDICARE, MEDICAID ==
[~2019-10-22] VITALS: Ht 190.5 cm; Wt 105.0 kg
[~2019-10-22 12:33] MED LIST changes: -ASPI-1393 PO; +ASPI-1497 PO; +VALA500T PO
[2019-10-22] MEDS ORDERED: SODIUM CHLORIDE 0.9% 1,000 ML IV ONE (12:43)
[2019-10-22 13:16] LABS: BASOPHILS % 0.6 % (0.0-2.0); EOSINOPHILS % 1.1 % (0.0-5.0); HEMATOCRIT. 29.1 % (42.0-52.0); HEMOGLOBIN. 9.8 g/dL (14.0-18.0); LYMPHOCYTES % 23.6 % (20.0-50.0); MEAN CORPUSCULAR HEMOGLOBIN 28.5 pg (28.0-32.0); MEAN CORPUSCULAR VOLUME 84.7 fL (80.0-94.0); MEAN PLATELET VOLUME 8.2 fl (7.4-10.4); MONOCYTES % 9.3 % (2.0-8.0); NEUTROPHILS % 65.4 % (40.0-76.0); PLATELET 292 x1000/uL (130-400); RED BLOOD CELL COUNT 3.44 mill/uL (4.7-6.1); RED CELL DISTRIBUTION WIDTH 15.5 % (11.6-14.6)
[2019-10-22 13:22] LABS: CHLORIDE 101 mEq/L (98-107)
[2019-10-22] MEDS ORDERED: POTASSIUM CHLORIDE 20MEQ TABLET SR PO ONE (13:45)
[2019-10-22 15:03] VITALS: BP 157/77
[2019-10-22 15:30] LABS: CLARITY URINE CLOUDY (CLEAR); COLOR URINE YELLOW (YELLOW); KETONES URINE NEGATIVE (NEGATIVE); LEUKOCYTE ESTERASE URINE 3+ (NEGATIVE); NITRITE URINE NEGATIVE (NEGATIVE); OCCULT BLOOD URINE 1+ (NEGATIVE); PH URINE 5.5 (4.5-8.0); PROTEIN URINE 1+ (NEGATIVE); SPECIFIC GRAVITY URINE 1.011 (1.005-1.030)
== END 2019-10-22 16:45 | disposition home or self-care (01) ==
LOC: ER 12:33
DX: E86.0 Dehydration (principal); N39.0 Urinary tract infection, site not specified; D64.9 Anemia, unspecified; E11.65 Type 2 diabetes mellitus with hyperglycemia; I11.0 Hypertensive heart disease with heart failure; I50.9 Heart failure, unspecified; J44.9 Chronic obstructive pulmonary disease, unspecified; Z85.07 Personal history of malignant neoplasm of pancreas; Z79.899 Other long term (current) drug therapy
CPT/HCPCS: 36415; 80053; 81003; 84484; 85025; 93005; 96360; 99284; J7030